=== PATIENT | female | born 1980 | race Asian ===

== ENCOUNTER 2020-08-13 01:19 | Outpatient (CLI) | payer BC ==
[~2020-08-13] VITALS: Ht 160 cm; Wt 52.7 kg
--- NOTE | 2020-08-13 00:25 | NUR ---
0225- DR. REINOSO ON UNIT AND IN ROOM TO PERFORM SONO TO MAKE SURE BABY IS HEAD DOWN. BABY IS HEAD DOWN. THEN DISCUSSES HIS OPINION OF TRANSFERRING TO [facility] BEING THE BEST OPTION AT THIS POINT WITH HER BEING 36.6 AND THE UNKNOWNS OF HOW WELL BABY WILL BE ONCE DELIVERED AND NEEDED TO BE IN A FACILITY THAT HAS A NICU JUST IN CASE.
--- NOTE | 2020-08-13 01:25 | NUR ---
0125- PT. WHEELED ONTO UNIT WITH BY HER SIDE. ORIENTATED TO ROOM AND CHANGED INTO GOWN. REPORTS GFM, NO BLEEDING, OCCASIONAL CTX AND SROM AT HOME AROUND 0040. 40 Y/O PT. OF DINAH AT 34/6 TODAY. 0131 - EFM AND TOCO ON AND TRACING. VITALS TAKEN, ASSESSMENT COMPLETED. 0140- SVE /-2 AND AMNIOTRACE POSITIVE.
[2020-08-13] MEDS ORDERED: CALCIUM CARBON650 M2 (02:23)
[2020-08-13] MEDS ORDERED: VITAMIN B COMPL1 SGL PO (02:23)
[2020-08-13] MEDS ORDERED: OMEGA-3 1000 MG1 CAP PO (02:24)
[2020-08-13] MEDS ORDERED: FOLIC ACID 40400 MCG PO (02:24)
[2020-08-13] MEDS ORDERED: NATURAL IRON65 MG (02:25)
[2020-08-13 02:30] VITALS: BP 144/84; PULSE 88; TEMP 98.1
[2020-08-13 03:14] LABS: BASO % 0.5 % (0.0-2.0); EOS # 0.1 (0.0-0.7); EOS % 0.6 % (0-4.0); GRAN % 76.6 % (42.2-75.2); HEMATOCRIT 38.7 % (37.0-47.0); HEMOGLOBIN 13.1 g/dl (12.5-16.0); LYMPH # 1.3 (1.2-3.4); LYMPH % 16.3 % (20.0-51.0); MEAN CELL VOLUME 99 fl (80.0-100.0); MEAN CORPUSCULAR HEMOGLOBIN 33 pg (27.0-31.0); MEAN CORPUSCULAR HGB CONC 34 g/dl (33.0-37.0); MEAN PLATELET VOLUME 11.7 fl (7.4-10.4); MONO # 0.4 (0.1-0.6); PLATELET COUNT 155 K/mm3 (130-400); RED BLOOD COUNT 3.92 M/mm3 (4.10-5.30); REDCELL DISTRIBUTION WIDTH-CV 12.1 % (11.5-14.5)
[2020-08-13 03:33] VITALS: BP 111/70; PULSE 78; TEMP 97.7
--- NOTE | 2020-08-13 03:50 | NUR ---
0350- CALLED RNVINNIE, AT [facility] AND GAVE REPORT ON PATIENT. 40 Y/O AT 34.6 WHO SROM AT HOME AROUND 0040. CAME IN TO US AROUND 0130- WAS CHECKED AT 0140 AND HAD POSITIVE AMNIOTRACE AND WAS 3/50/-2. ONLY HX IS AMA AND FAILED 1HR GLUCOSE BUT PASSED 3 HR GLUCOSE. WE GAVE 2G OF ANCEPH 0302 AND 12MG OF BETAMETHASONE IM AT 0305. FHR 145-150, REACTIVE AND STEVE EVERY 2-6 MINUTES AND LASTING 40-120 SECONDS. PATIENT IS COMFORTABLE AND DOES NOT FEEL MOST CONTRACTIONS, SO DOES NOT APPEAR TO BE IN ACTIVE LABOR. EMS LEFT AROUND 0345 WITH PATIENT OFF OUR UNIT. NEW PARENTS WITH LOTS OF QUESTIONS BUT DID NOT DISCUSS A PLAN IN DETAIL WITH US.
== END 2020-08-13 03:45 | disposition critical access hospital (66) ==
LOC: LDRO 01:19
PROVIDERS: Obstetrics & Gynecology
DX: O42.013 Preterm premature rupture of membranes, onset of labor within 24 hours of rupture, third trimester (principal); Z3A.34 34 weeks gestation of pregnancy
CPT/HCPCS: J0290; J0702; J7120

== ENCOUNTER → 2024-02-11 | Outpatient (CLI) | payer BC ==
[~2024-02-11] MED LIST: CALCIUM CARBON650 M2; FOLIC ACID 40400 MCG PO; NATURAL IRON65 MG; OMEGA-3 1000 MG1 CAP PO; VITAMIN B COMPL1 SGL PO
== END ==
LOC: MC.RAD 09:10
DX: Z12.31 Encounter for screening mammogram for malignant neoplasm of breast (principal)